=== PATIENT | female | born 1990 | race African-American/Black ===

== ENCOUNTER 2021-01-16 | Emergency (ER) | payer MEDICAID ==
[~2021-01-16] VITALS: Ht 160 cm; Wt 61.2 kg
--- NOTE | 2021-01-16 01:25 | NUR ---
URINE SAMPLE COLLECTED AND SENT TO LAB
[2021-01-16] MEDS ORDERED: predniSONE 20 MG TABLET ONE (01:56)
[2021-01-16] MEDS: predniSONE 20 MG TABLET PO ONE (02:05)
--- NOTE | 2021-01-16 02:05 | NUR ---
Jacob jaime in [facility] - 01/16/21 at 0215 by TOM OGGARETHBOIVANIA @ BEDSIDE
--- NOTE | 2021-01-16 02:10 | NUR ---
[employer] INTERN @ BEDSIDE
[2021-01-16 02:26] LABS: CALCIUM, SERUM 9.5 mg/dL (8.5-10.1); CREATININE 0.9 mg/dL (0.6-1.3); POTASSIUM 4.3 mmol/L (3.5-5.1)
[2021-01-16 02:38] LABS: BASOPHILS # (AUTO) 0.1 K/uL (0.0-0.2); BASOPHILS % (AUTO) 0.9 % (0.0-2.0); EOSINOPHILS % (AUTO) 0.6 % (0.0-6.0); HEMATOCRIT 41 % (33-45); HEMOGLOBIN 13.3 g/dL (11.5-14.8); LYMPHOCYTES # (AUTO) 2.8 K/uL (0.8-4.8); LYMPHOCYTES % (AUTO) 29.8 % (20.0-44.0); MEAN CORPUSCULAR HGB CONC 33 g/dl (31.0-36.0); MEAN CORPUSCULAR VOLUME 91 fL (82-100); MONOCYTES # (AUTO) 0.7 K/uL (0.1-1.30); MONOCYTES % (AUTO) 7.1 % (2.0-12.0); NEUTROPHILS # (AUTO) 5.7 K/uL (1.8-8.9); NEUTROPHILS % (AUTO) 61.6 % (43.0-81.0); PLATELET COUNT (AUTO) 358 K/uL (150-450); RED BLOOD CELL COUNT(AUTO) 4.49 MIL/uL (4.0-5.2); WHITE BLOOD COUNT (AUTO) 9.3 K/uL (4.3-11.0)
[2021-01-16 02:51] LABS: BILIRUBIN,URINE Negative (NEGATIVE); COLOR,URINE YELLOW (YELLOW); LEUKOCYTE ESTERASE ,URINE Negative (NEGATIVE); NITRITE, URINE Negative (NEGATIVE); PH,URINE 6.5 (5.0-8.0); PROTEIN,URINE Negative (NEGATIVE); UGLUCOSE Negative (NEGATIVE); UROBILINOGEN,URINE 0.2 EU/dL (0.2)
[2021-01-16 04:03] VITALS: BP 139/80
--- NOTE | 2021-01-16 04:03 | NUR ---
Patient discharged to home in stable condition. Written and verbal after care instructions given. Patient verbalizes understanding of instruction.
== END 2021-01-16 04:03 | disposition home or self-care (01) ==
LOC: ER 00:04
DX: R07.0 Pain in throat (principal); R10.32 Left lower quadrant pain; F10.10 Alcohol abuse, uncomplicated; Y90.9 Presence of alcohol in blood, level not specified; Z60.2 Problems related to living alone
CPT/HCPCS: 36415; 70360; 76856; 80048; 81003; 84703; 85025; 99285; J7512